=== PATIENT | male | born 1980 | race Caucasian/White ===

== ENCOUNTER 2019-01-28 05:42 | Emergency (ER) | payer MEDICAID ==
[~2019-01-28] VITALS: Ht 188 cm; Wt 70.0 kg
[~2019-01-28 05:42] MED LIST: DOCU100C40 PO; HYDR-4383 PO; ONDA8TAB9 PO; OXYB5TAB16 PO; OXYB5TAB4 PO; OXYC-150 PO; TAMS0.4C32 PO
[2019-01-28] MEDS ORDERED: IBUP-1984 PO (05:49)
[2019-01-28] MEDS ORDERED: PENI500T2 PO (05:49)
[2019-01-28] MEDS ORDERED: ketorolac trometh inj. 60 MG/2 ML VIAL IM ONE (05:50)
[2019-01-28 05:58] VITALS: BP 125/88
== END 2019-01-28 06:07 | disposition home or self-care (01) ==
LOC: ER 05:43
DX: K02.9 Dental caries, unspecified (principal); K03.81 Cracked tooth; Z98.890 Other specified postprocedural states; Z87.442 Personal history of urinary calculi; Z79.899 Other long term (current) drug therapy
CPT/HCPCS: 96372; 99283; J1885

== ENCOUNTER 2019-03-02 15:10 | Emergency (ER) | payer MEDICAID ==
[~2019-03-02] VITALS: Ht 188 cm; Wt 79.1 kg
[2019-03-02 15:41] VITALS: BP 103/77
[2019-03-02] MEDS ORDERED: ketorolac tromethamine 15mg/ml inj. IM ONE (17:30)
== END 2019-03-02 18:31 | disposition home or self-care (01) ==
LOC: ER 15:11
DX: S46.911A Strain of unspecified muscle, fascia and tendon at shoulder and upper arm level, right arm, initial encounter (principal); Z87.442 Personal history of urinary calculi; Z79.899 Other long term (current) drug therapy; X50.1XXA Overexertion from prolonged static or awkward postures, initial encounter; Y93.89 Activity, other specified; Y92.89 Other specified places as the place of occurrence of the external cause; Y99.9 Unspecified external cause status
CPT/HCPCS: 73030; 96372; 99283; J1885